=== PATIENT | female | born 1975 | race Caucasian/White ===

== ENCOUNTER 2017-05-28 14:41 | Emergency (ER) | payer OTHER ==
[~2017-05-28] VITALS: Ht 172.7 cm; Wt 81.0 kg
[~2017-05-28 14:41] MED LIST: ALPR0.25 PO; CHOL100015 PO; ESTR0.5G PO; FLUD0.1T PO; FLUT1DIS3 INH; HYDROCORTISONE PO; LEVO125T5 PO; MULT1TAB10 PO; NORE0.3513 PO; POTA20PA PO; VANC125C2 PO
[2017-05-28 14:48] VITALS: BP 109/71
[2017-05-28] MEDS ORDERED: LAMO100T5 PO (15:43)
[2017-05-28] MEDS ORDERED: HYDR20TA PO (15:43)
[2017-05-28] MEDS ORDERED: ZOLP-413 PO (15:43)
[2017-05-28] MEDS ORDERED: OMEP20TA62 PO (15:43)
[2017-05-28] MEDS ORDERED: ALBU0.63 NEB (15:43)
[2017-05-28] MEDS ORDERED: MIDO5TAB PO (15:43)
[2017-05-28] MEDS ORDERED: LORA0.5T PO (15:43)
[2017-05-28] MEDS ORDERED: [UNRECOGNIZED DRUG - OTHER] PO (15:43)
[2017-05-28] MEDS ORDERED: BUME1TAB21 PO (15:43)
[2017-05-28] MEDS ORDERED: HYDR25TA11 PO (15:43)
[2017-05-28] MEDS ORDERED: ASPI-515 PO (15:43)
[2017-05-28] MEDS ORDERED: FLORINEF PO (15:43)
== END 2017-05-28 16:34 | disposition home or self-care (01) ==
LOC: ED 16:00
DX: G89.11 Acute pain due to trauma (principal); M79.672 Pain in left foot; I25.2 Old myocardial infarction; N18.3 Chronic kidney disease, stage 3 (moderate); G62.9 Polyneuropathy, unspecified
CPT/HCPCS: 99284